=== PATIENT | male | born 1990 | race African-American/Black ===

== ENCOUNTER 2023-08-27 21:44 | Observation (INO) | payer SELFPAY ==
[2023-08-27 21:44] VITALS: BP 165/103; PULSE 66; RESP 17; TEMP 35.9; O2SAT 99; BMI 43.3
--- NOTE | 2023-08-27 22:09 | CT_ITS ---
We are attempting to reach an attending provider to discuss findings. An addendum with communication details will be sent when the communication is complete. STUDY: CT ABDOMEN AND PELVIS WITH CONTRAST REASON FOR EXAM: Male, 33 years old. abd pain RADIATION DOSAGE (If Supplied By Facility): CTDIvol = ( 16.92 ) mGy, DLP = ( 1343.97 ) mGycm TECHNIQUE: Transaxial images were obtained from the dome of the diaphragm to the symphysis pubis without oral contrast. IV 100mL Isovue-370 was administered. Sagittal and coronal images were reconstructed. Individualized dose optimization techniques were used for this CT. COMPARISON: None. FINDINGS: The visualized lung bases are unremarkable. The visualized portions of the heart are within normal limits. Normal liver. Normal gallbladder and extrahepatic biliary system. Normal spleen. Normal pancreas. Normal bilateral adrenal glands. Normal right kidney. Normal left kidney. Normal visualized stomach. Normal small intestine. Normal colon. There is a tubular, thick-walled appendix (>7mm), consistent with acute appendicitis. No loculated fluid collection to suggest abscess. Normal abdominal aorta. Normal inferior vena cava. Normal retroperitoneum. Normal urinary bladder. Normal abdominal wall. Normal osseous structures. CT/Abdomen/Pelvis W IV Cont ONLY IMPRESSION: Acute appendicitis without abscess or perforation. Electronically Signed: Israel Gabriel MD at 23:36 EDT ,
--- NOTE | 2023-08-27 22:32 | EDS_ITS ---
HPI History of Present Illness Chief Complaint: Abd Pain Informant: patient and spouse/S.O. Narrative Narrative: Patient is a 33-year-old male with no significant past medical history. He states he noticed some generalized abdominal discomfort yesterday. He states that today the pain became more severe and he has associated nausea from it. He denies any recent sick contacts or trauma or excessive activity. He does endorse constipation which she states is not normal for him. He denies any history of abdominal surgery or previous intestinal diagnosis such as ulcerative colitis Crohn's disease or IBS. He states that the symptoms have worsened over the last 24 hours he has concern for an infectious process and therefore comes in for evaluation [facility] PFS Medical History no medical history no medical history Home Medications albuterol sulfate 90 mcg/actuation aerosol inhaler (Ventolin HFA) 1 - 2 puff inhalation Q4H PRN PRN Wheezing ##1 02/03/14 [Rx Last Taken Unknown] cephalexin 500 mg capsule 500 mg PO Q6 ##40 06/15/14 [Rx Last Taken Unknown] Allergy/AdvReac Type Severity Reaction Status Date / Time No Known Allergies Allergy Verified 08/27/23 21:46 Social History Smoking Status: Never smoker [facility] ED Constitutional Constitutional ED: Denies chills or fever(s) ENT ENT ED: Denies sore throat Cardiovascular Cardiovascular: Denies chest pain, palpitations or racing heartbeat Respiratory/Chest Respiratory/Chest: Denies cough or dyspnea Gastrointestinal Gastrointestinal: Reports abdominal pain, constipation and nausea; Denies diarrhea or vomiting Genitourinary Genitourinary ED: Denies dysuria, hematuria or urinary frequency Musculoskeletal Musculoskeletal: Denies back pain or myalgias Integumentary Denies rash Neurologic Neurologic: Denies headache(s) Hematologic/Lymphatic Hematologic/Lymphatic: Denies easy bleeding or easy bruising EXAM Physical Exam Const Vital Signs: 08/27/23 21:44 08/27/23 23:26 Temperature 96.6 F L Temperature Source Temporal Pulse Rate 66 70 Respiratory Rate 17 18 Blood Pressure 165/103 H 145/91 H Blood Pressure Mean 123 109 Pulse Ox 99 95 Oxygen Delivery Method Room Air Room Air Positive well nourished and well developed General Appearance ED: well developed; Negative for pallor HEENT Reports moist mucous membranes HEENT Narrative: No tongue or lip swelling no oral lesions no airway edema or compromise No signs of infection noted in the posterior pharynx Eyes PERRL and EOMs intact bilaterally General Eye ED: Negative for scleral icterus Neck supple Resp normal respiratory effort and clear to auscultation bilaterally Cardio regular rate and regular rhythm Rate: other Other Details: Heart is regular rate and rhythm without murmurs rubs or gallops Radial and carotid pulses are equal and symmetric GI non-distended GI Narrative: Abdomen is soft and nondistended with hypoactive bowel sounds. Patient has pain on palpation in the midepigastric right upper quadrant and right lower quadrant of the abdomen. Pain seems to be greatest in the right lower quadrant. Positive rebound. Negative heel strike and psoas sign but positive obturator sign. No pulsatile mass or fluid wave noted. No peritoneal signs Auscultation: hypoactive bowel sounds Palpation: soft Back/Spine no CVA tenderness Extremity normal to inspection Neuro oriented x3, CN's II-XII intact bilaterally and no sensory deficits noted Sensorium / Orientation: alert Motor Exam: strength 5/5 throughout Psych mental status grossly normal Skin no rashes or lesions noted and no wounds General Skin Exam: Negative for jaundice or pallor MDM MDM MDM Narrative Medical decision making narrative: Patient presented to the ER hypertensive otherwise with stable vitals. He reported generalized abdominal discomfort for approximately 24 hours that worsened this evening. He denied any known sick contacts. Differential diagnosis is for viral stomach infection such as [place] virus or rotavirus. With his exam showing pain in the midepigastric and right upper quadrant region there is concern for biliary colic versus acute cholecystitis versus pancreatitis. However as he also had pain in the right lower quadrant with rebound appendicitis is in the differential. Secondary to his basic labs were obtained as well as CT scan of the abdomen and pelvis. Labs revealed no clinically significant findings but CAT scan did show a dilated appendix consistent with acute appendicitis. Secondary to this he was started on Zosyn and general surgery was contacted. General surgeon Dr. Noguera evaluated the patient in the ER and will admit him to his service for further treatment of his acute appendicitis. The patient has had improvement of his blood pressure with pain control and otherwise remains hemodynamically stable History & Record Review Discussion w/independent historian: Patient and Significant other Lab Data Attestation: I reviewed the patient's lab results. Labs: Laboratory Results - last 24 hr 08/27/23 22:47 WBC 9.2 RBC 5.65 Hgb 14.4 Hct 44.3 MCV 78.4 L MCH 25.5 L MCHC 32.5 RDW Std Deviation 40.3 RDW Coeff of Fracisco 14.2 Plt Count 219 MPV 10.7 Immature Gran % (Auto) 0.300 Neut % (Auto) 75.0 H Lymph % (Auto) 14.4 L Mccreary % (Auto) 8.8 Eos % (Auto) 1.0 Baso % (Auto) 0.5 Absolute Neuts (auto) 6.9 Absolute Lymphs (auto) 1.33 Nucleated RBC % 0 Sodium 137 Potassium 3.7 Chloride 104 Carbon Dioxide 25.0 Anion Gap 8 BUN 11 Creatinine 1.39 H Estim Creat Clear Calc 105.46 Est GFR (MDRD) Af Amer 76 Est GFR (MDRD) Non-Af 63 BUN/Creatinine Ratio 7.9 L Glucose 145 H Calcium 10.2 H Total Bilirubin 0.70 Direct Bilirubin 0.19 AST 23 ALT 31 Alkaline Phosphatase 51 Total Protein 8.1 Albumin 4.0 Globulin 4.1 Lipase 42 Radiography Diagnostic Testing: Clinical Impression(s) from Imaging Studies Abdomen/Pelvis CT 08/27/23 22:09 IMPRESSION: Acute appendicitis without abscess or perforation. Electronically Signed: Israel Gabriel MD at 23:36 EDT , ADDENDUM: 08/27/23 2348 IMPRESSION: Acute appendicitis without abscess or perforation. N.B. : The above Results were Read Back by Israel Gabriel MD to Bill Cage DO, and understanding confirmed on 08/27/2023 23:41:57 (ET). Electronically Signed: Israel Gabriel MD at 23:36 EDT , Discharge Plan Dx/Rx/DC Orders Clinical Impression: Hypertension, Acute appendicitis Disposition Disposition: Acute Care Hospital [facility] Discharge Date/Time: 08/28/23 01:05
[2023-08-27] MEDS: 0.9% Normal Saline (1000mL) 1,000 ML 999 ML IV (22:38)
[2023-08-27] MEDS: Ondansetron 4 MG/2 ML Vial IV (22:39)
[2023-08-27] MEDS: Morphine 4 MG/ML Syringe IV (22:39)
[2023-08-27 22:57] LABS: Absolute Lymphocyte Count 1.33 X10^3/uL (0.83-4.51); Absolute Neutrophil Count 6.9 X10^3/uL (2.0-7.7); Basophil# 0.05 X10^3/uL; Basophil% 0.5 % (0-1); Eosinophil# 0.09 X10^3/uL; Hematocrit 44.3 % (40-54); Hemoglobin 14.4 g/dL (13.0-16.5); Lymphocyte # 1.33 X10^3/ul (0.83-4.51); Lymphocyte % 14.4 % (19-41); Mean Corp Hgb Conc 32.5 g/dL (32-36); Mean Corpuscular Hgb 25.5 pg (27.0-32.0); Mean Corpuscular Volume 78.4 fL (80-94); Mean Platelet Vol. 10.7 fl (6.2-12.0); Monocyte# 0.81 X10^3/uL; Monocyte% 8.8 % (0-10); NRBC Flagged by Analyzer 0 % (0-5); Neutrophil # 6.91 X10^3/uL (2.7-7.7); Platelet Count 219 K/mm3 (150-450); RBC Distribution Width CV 14.2 % (11.6-14.6); RBC Distribution Width SD 40.3 fl (35.1-43.9); Red Blood Count 5.65 M/mm3 (4.6-6.2); White Blood Count 9.2 K/mm3 (4.4-11.0)
[2023-08-27 23:26] VITALS: BP 145/91; PULSE 70; RESP 18; O2SAT 95
[2023-08-27 23:42] LABS: AST(SGOT) 23 U/L (15-37); Alanine Aminotransfer ALT/SGPT 31 U/L (16-61); Alkaline Phosphatase 51 U/L (45-117); Anion Gap 8 (5-15); BUN 11 mg/dL (7-18); BUN/Creat Ratio 7.9 RATIO (10-20); Bilirubin, Direct 0.19 mg/dL (0.00-0.30); Calcium,Total 10.2 mg/dL (8.5-10.1); Chloride 104 mmol/L (98-107); Creatinine, Serum 1.39 mg/dL (0.70-1.30); EST Glomerular Filtration Rate 63 mL/min (>60); Est Glom Filt Rate - Afr Amer 76 mL/min (>60); Estimated Creatinine Clearance 105.46 ml/min; Globulin 4.1 g/dL (2.2-4.2); Glucose 145 mg/dL (74-106); Lipase 42 U/L (13-75); Potassium 3.7 mmol/L (3.5-5.1); Protein, Total 8.1 g/dL (6.4-8.2); Sodium Level 137 mmol/L (136-145)
[2023-08-28] VITALS (13 sets, daily range): BP systolic 125–174; BP diastolic 62–97; PULSE 63–94; RESP 16–20; TEMP 36.3–37.1; O2SAT 93–99; BMI 44.7
--- NOTE | 2023-08-28 00:54 | PCM.HP.STD ---
HPI - General General Date of Admission: 08/28/23 Date of Service: 08/28/23 HPI Narrative VU VEGA, is a 33 M who presents to [facility] with complaints of acute onset abdominal pain that began in the periumbilical region and migrated to the right lower quadrant since its onset a day and a half ago. He notes that the pain progressed to the point that he had to call off work and then ultimately presented here to the emergency department. The pain is associated with some nausea but no vomiting. Mr. Vega describes initially leaving the discomfort to be related to his constipation but ultimately concluded that there is something more involved. Patient's ER workup was notable for CBC that shows normal white blood cell count of 9.2 but he has a increased percentage of neutrophils per the differential. CT imaging of the abdomen pelvis was consistent with acute uncomplicated appendicitis. Patient denies any past medical history but has a BMI of 43 at his present weight. His laboratories also show some evidence of mildly elevated creatinine at 1.39 and his blood pressure is mildly elevated at 145/91 presently. [facility] Medical History no medical history Home Medications albuterol sulfate 90 mcg/actuation aerosol inhaler (Ventolin HFA) 1 - 2 puff inhalation Q4H PRN PRN Wheezing ##1 02/03/14 [Rx Last Taken Unknown] cephalexin 500 mg capsule 500 mg PO Q6 ##40 06/15/14 [Rx Last Taken Unknown] Allergy/AdvReac Type Severity Reaction Status Date / Time No Known Allergies Allergy Verified 08/27/23 21:46 Social History Smoking Status: Never smoker Vital Signs Vital Signs Vital Signs: 08/27/23 21:44 08/27/23 23:26 Temperature 96.6 F L Temperature Source Temporal Pulse Rate 66 70 Respiratory Rate 17 18 Blood Pressure 165/103 H 145/91 H Blood Pressure Mean 123 109 Pulse Ox 99 95 Oxygen Delivery Method Room Air Room Air Weight Weight: 302 lb 4.06 oz Body Mass Index (BMI) 43.3 Physical Exam Const alert, oriented x3 and no apparent distress GI GI Narrative: Morbidly obese, no scars, nondistended, soft, tender to palpation in the right lower quadrant. This is largely centered over McBurney's point. Patient has a positive obturator sign, negative psoas sign, negative Rovsing sign Results Lab / Micro Data 08/27/23 22:47 08/27/23 22:47 Labs: Laboratory Results - last 24 hr 08/27/23 22:47: WBC 9.2, RBC 5.65, Hgb 14.4, Hct 44.3, MCV 78.4 L, MCH 25.5 L, MCHC 32.5, RDW Std Deviation 40.3, RDW Coeff of Fracisco 14.2, Plt Count 219, MPV 10.7, Immature Gran % (Auto) 0.300, Neut % (Auto) 75.0 H, Lymph % (Auto) 14.4 L, Ray % (Auto) 8.8, Eos % (Auto) 1.0, Baso % (Auto) 0.5, Absolute Neuts (auto) 6.9, Absolute Lymphs (auto) 1.33, Nucleated RBC % 0, Sodium 137, Potassium 3.7, Chloride 104, Carbon Dioxide 25.0, Anion Gap 8, BUN 11, Creatinine 1.39 H, Estim Creat Clear Calc 105.46, Est GFR (MDRD) Af Amer 76, Est GFR (MDRD) Non-Af 63, BUN/Creatinine Ratio 7.9 L, Glucose 145 H, Calcium 10.2 H, Total Bilirubin 0.70, Direct Bilirubin 0.19, AST 23, ALT 31, Alkaline Phosphatase 51, Total Protein 8.1, Albumin 4.0, Globulin 4.1, Lipase 42 Imaging Radiology Impression Abdomen/Pelvis CT 08/27/23 22:09 IMPRESSION: Acute appendicitis without abscess or perforation. Electronically Signed: Israel Gabriel MD at 23:36 EDT Reading Location ID and State: [id number] / [place] Tel , Service support , ADDENDUM: 08/27/23 2718 IMPRESSION: Acute appendicitis without abscess or perforation. N.B. : The above Results were Read Back by Israel Gabriel MD to Bill Cage DO, and understanding confirmed on 08/27/2023 23:41:57 (ET). Electronically Signed: Israel Gabriel MD at 23:36 EDT Reading Location ID and State: [id number] [place] Tel , Service support , Assessment & Plan Assessment/Plan (1) Acute appendicitis: PLAN: Patient is a 33-year-old male with signs and symptoms of acute appendicitis. CT imaging confirms this diagnosis. In the management of appendicitis was discussed with patient and significant other and I outlined my recommendation to proceed with surgical appendectomy in addition to application of empiric IV antibiotic therapy now. I cited the results of the recently published coda trial and the fact that patients with appendicoliths were an outlier both in this trial as well as others for the increased risk of perforation. I then proceeded with a description of the procedure and Mr. Vega was receptive of this recommendation and wishes to proceed as described. He will be dosed antibiotics now by emergency medicine and we will then proceed with laparoscopic appendectomy at 6 AM this morning. Post procedure expectations were clarified and barring any unforeseen issues perioperatively we will look to plan for discharge after a brief observational stay provided patient is able to tolerate diet and have adequate pain control postoperatively. Charges/Coding Visit Charges Inpatient E&M: 53069 Init Hosp L2
[2023-08-28] MEDS: Piperacil/Tazobactam 3.375 GM in 0.9% Normal Saline (50mL MB+) 50 ML IV ×2 (00:59→06:19)
[2023-08-28] MEDS: 0.9% Normal Saline (1000mL) 1,000 ML 125 ML IV ×2 (01:20→09:25)
[2023-08-28] MEDS: 0.9% Normal Saline (250mL Bag) 250 ML 15 ML IV (01:22)
--- NOTE | 2023-08-28 06:20 | APP_PTH ---
PATIENT: VU VEGA LOC: MS3 U#:[id number] AGE/SX: 33/M ROOM: TX312 RE08/28/[address]: Dr. Kirill Noguera MD : 1990 BED: 1 DIS: 08/28/2023 SPEC #: [id number] RECD: 08/28/23 09:41 STATUS: JOSE ALFREDO REQ #: [id number] GREGG: 08/28/23 06:[address]: Kirill Noguera DEPT: SURGICAL PATHOLOGY RECD BY: Angelic Zepeda ENTERED: 08/28/23 11:15 SP TYPE: APPENDIX OTHR DR: No Primary Care Phys Tissues: Appendix, NOS Procedures: Surgery Specimen Level III HEADER OPERATION: Laparoscopic, Appendectomy PRE-OP DIAGNOSIS: Acute appendicitis TISSUE SUBMITTED: Appendix MICROSCOPIC DIAGNOSIS Appendix, appendectomy: Acute appendicitis and periappendicitis. DEENA/mr 08/29/2023 MICROSCOPIC DESCRIPTION Slides are reviewed. GROSS DESCRIPTION Received in fixative is one container labeled with the patient's name and designated appendix. The specimen consists of J- Shaped appendix measuring 8.5 cm in length and up to 1.0 cm in diameter. The attached periappendiceal adipose tissue measures up to 2.0 cm in width. The serosa is congested. No obvious perforation is identified. The lumen contains hemorrhagic material. No fecalith is identified. Geomorphology Teacher sections are submitted in one cassette. / SJ: 08/28/23 TC:2 CPT: 67341
[2023-08-28] MEDS: Lactated Ringers 1,000 ML 15 ML IV (06:25)
[2023-08-28] MEDS: Bupiv/Epi 0.25% 30 ML Vial (07:22)
--- NOTE | 2023-08-28 07:25 | PCM.OPRPT ---
Report of Operation Date of Procedure: 08/28/23 Pre-Operative Diagnosis: Acute appendicitis Post-Operative Diagnosis: Acute uncomplicated appendicitis Surgery/Procedure Performed:: Laparoscopic appendectomy Description of Surgical Findings:: ? Acutely inflamed and dilated firm appendix without evidence of perforation, simple peritoneal fluid localized around appendix Surgeon: Kirill Noguera automobile mechanic radiator: None Type of Anesthesia: General/Supplemental Anesthesiologist: Robbin Duran Specimen's removed: Appendix Estimated Blood Loss (mL): 20 Description of Procedure: After appropriate identification in the preoperative holding area, the patient was brought to the operating room and placed supine on the operating room table. Antibiotics had been preoperatively administered. Patient was then induced with general endotracheal anesthetic. The abdomen was prepped and draped in usual sterile fashion. Formal timeout was conducted to confirm both the patient and the procedure. A supraumbilical incision was made and carried down to the level of the fascia which was sharply opened. After opening the peritoneum in like fashion a finger sweep was made to confirm position, and a balloon trocar was placed and pneumoperitoneum was established to 15 mmHg. Patient was positioned in Trendelenburg with the left side down. 2 additional 5 mm trocars were placed in the left lower quadrant and suprapubic positions. The peritoneum was inspected and there were no signs of inadvertent injury from this Handley entry. The appendix was visualized with moderately severe inflammation and was firm and dilated. I attempted to place the appendix on traction but there was an adhesion to the lateral sidewall so this was carefully lysed with the harmonic scalpel. Then using blunt laparoscopic dissection, a window was made in the mesoappendix adjacent to the appendiceal base. The mesoappendix was divided with application of a laparoscopic harmonic. The base of the appendix was sealed and amputated with the use of an Endo LORAINE stapler. As a staple line was reinspected I found that there is approximately 1.5 cm of appendix left until the junction with the cecum so additional dissection of the remaining mesoappendix was undertaken. Then a second firing of an Endo LORAINE stapler was used to secure the true appendiceal base. Both this remnant and the main specimen were placed in an Endo Catch bag. The staple line was inspected for hemostasis and there was some slight bleeding from the midportion of the staple line. This was addressed with application of a titanium clip. After hemostasis was confirmed the appendix was removed from the umbilical port site. Pneumoperitoneum was then evacuated and the supraumbilical port site fascia was closed with #1 Vicryl in a [id number] fashion. The port sites were infiltrated with a total volume of 30 mL 0.25% bupivacaine with epinephrine local anesthetic. The skin of each port site was closed with 4-0 Monocryl in a subcuticular fashion. Steri-Strips and OpSite dressings were applied. Patient tolerated procedure well without any apparent complications. They were awoken from general anesthetic without issue and transferred to post anesthesia care unit for ongoing recovery. Complications None Admit VTE Documentation VTE Mechan Device Prophylaxis: SCD's Procedures Digestive 40xxx-49xxx: 07626 Laparoscopy appendectomy
--- NOTE | 2023-08-28 10:09 | CASEMGMT ---
Social Work SW met w/pt and pt's fiance in room in regard to insurance, pt is listed as self pay. Pt confirms does not have insurance. He did speak w/Hailee in [employer] this morning. Pt open to resources. SW returned w/resources, gave to his fiancee in room as he is asleep. SW gave his fiancee information on [facility] assist, [employer], [employer], [employer], [employer], and prescription assistance programs. SW remains available for any additional social service needs. NAREN Vang
--- NOTE | 2023-08-28 13:09 | DCINST_ITS ---
Discharge Instructions Diet Discharge Diet: Light diet - advance as tolerated Activity Discharge Activity: May Not Drive (while taking narcotic pain medications) Lifting Restrictions: No lifting greater than 15 pounds for 2 weeks from your procedure Dressing / Incision Call your doctor if your incision/area has: Continuous Slow Oozing, Sudden Increased Bleeding, Increased Pain/ Swelling, Increased Redness, Foul Smelling Discharge and Swelling at the incision site Call your doctor if you observe: Fever of 101 or Higher Suture Line Care: Avoid Pulling/Pushing and Avoid Pinching/Bending Remove Dressing in: 2 days (remove plastic dressings in 2 days. Remove white steri-strips in 1 week. Recommend getting steri-strips wet prior to removal) Cleanse incision/area with: Soap & Water Follow Up Care Please Follow Up With: Kirill Noguera MD When: Please contact our office to schedule a follow-up appointment 2 weeks from your surgery date. Please call [phone], option #2 to schedule your post-op. Thank you Test Results: Test results from this visit will be discussed in further detail at your follow- up appointment, if applicable. Discharge Plan Admission Admit Date/Time: 08/28/23 00:51 Primary Reason for Your Visit: Acute Appendicitis Attending Provider: Kirill Noguera Primary Care Provider: Care Physician,No Primary Instructions Additional Instructions / Restrictions: Appendectomy Diet ? Start light with soups and soft bland foods. You may advance diet as tolerated. Activity ? You may drive in 3-5 days but not while taking narcotic pain medication. ? I encourage walking. You may go up steps, one at a time. ? Do not swim or use hot tubs for 2 weeks. ? For comfort, you may use warm compresses or ice as needed for 15-20 minutes at a time. Lifting ? You may lift up to 15 pounds for 2 weeks. Dressings/Incision ? You may shower OVER your plastic dressings ? Do NOT tub bathe for 1 week ? Leave plastic dressings on for 2 days. ? When plastic dressings are removed, you will find steri-strips. It is okay to continue showering with them in place, pat them dry. ? You may remove steri-strips after 1 week. We recommend getting them soaking wet for easier removal. Medications ? Anesthesia used during surgery and pain medications may cause constipation. I recommend initiating on the day of surgery a fiber supplement like, Metamucil, Citrucel, FiberCon, Benefiber, or a generic form of these medications. 1 heaping tablespoon in water daily. You may continue to utilize any bowel regimen or oral laxatives that you routinely take. ? As long as you are not intolerant to Tylenol, acetaminophen, ibuprofen, Motrin, Advil, Aleve, or similar medications, I would recommend transitioning to these [id number] medicines as soon as possible instead of continued use of narcotic pain medication. Follow up ? You should call [facility] soon after surgery, at [phone] option 1 to make a follow up appointment for 7-10 days after your surgery. It is recommended you establish with a primary care physician for new finding of hypertension and possible new diagnosis of sleep apnea during surgery. If you need recommendations, we would be happy to provide different names of primary care physicians within the area. Discharge Orders/Prescriptions Prescriptions: New oxycodone 5 mg Tablet 5 mg PO Q6H PRN PRN (Reason: Pain Score 6-10) 4 Days Qty: 14 0RF acetaminophen 500 mg Tablet 500 mg PO Q6H PRN PRN (Reason: Pain Score 1-10) Qty: 0 0RF Continued albuterol sulfate [Ventolin HFA] 1 INHALER inhaler 1 - 2 puff inhalation Q4H PRN PRN (Reason: Wheezing) Qty: 1 0RF Referrals / Follow Up: Kirill Noguera MD [Med Staff - Active Staff] - Within 2 Weeks Care Physician,No Primary [Primary Care Provider] - Disposition Disposition (needs filled in before D/C Order can be placed): Home, Self Care
[2023-08-28] MEDS: oxyCODONE 5 MG Tablet PO (13:29)
[2023-08-28] MEDS: Acetaminophen 500 MG Tablet PO (13:29)
--- NOTE | 2023-08-28 14:53 | NURSING ---
discussed pain management/expectations/post op. pt rates pain level 5/10 however states he is able to be distracted and converse with visitors who are at bedside and able to laugh.
== END 2023-08-28 18:15 | disposition home or self-care (01) ==
LOC: ED 08-28 00:07 → MS3 08-28 01:17
PROVIDERS: Admitting Provider Surgery; Emergency Provider Emergency Medicine; Visit Provider Surgery
PROC: 0DTJ4ZZ Resection of Appendix, Percutaneous Endoscopic Approach (ICD-10-PCS; CPT 44970; principal; 2023-08-28 06:00)
DX: K35.80 Unspecified acute appendicitis (principal); I10 Essential (primary) hypertension; Z79.899 Other long term (current) drug therapy
CPT/HCPCS: 44970; 00840; 96361 ×2; 96375; 74177; 80048; 80076; 83690; 85025; 88304; 96365; 96366; 97802; 99221; 99284; J7030; J7050; J7120; Q9967; A4216; G0378; J2405